=== PATIENT | female | born 1995 | race Two or more races ===

== ENCOUNTER 2020-09-27 20:17 | Emergency (ER) | payer OTHER ==
[2020-09-27 20:24] VITALS: TEMP 98.2; BMI 28.1
[2020-09-27] MEDS ORDERED: ACETAMINOPHEN 325 MG TABLET (FP) PO ONE (22:19)
[2020-09-27 22:47] VITALS: PULSE 94
[2020-09-27 22:52] LABS: BASO % 0.5 % (0-2.0); EOS % 0.6 % (0-4.5); HEMOGLOBIN 10.2 GM/dL (10.7-15.3); LYMPH % 19.9 % (8-40); MCH 35.8 pg (25.7-33.7); MCHC 34.1 g/dl (32.0-36.0); MEAN CELL VOLUME 104.9 fl (80-96); MONO % 5.5 % (3.8-10.2); NEUT % 73.5 % (42.8-82.8); PLATELET COUNT 250 K/MM3 (134-434); RBC 2.86 M/mm3 (3.60-5.2); RDW 13.2 % (11.6-15.6); WHITE BLOOD COUNT 8.6 K/mm3 (4.0-10.0)
[2020-09-27 22:54] LABS: EPI CELLS 10 /uL (0-25.1); HYALINE CASTS 2 /uL (0-3.1); PH,URINE 7.5 (5.0-8.0); URINE APPEARANCE CLEAR; URINE BACTERIA 385 /uL (0-1359); URINE BILIRUBIN NEGATIVE (NEGATIVE); URINE COLOR YELLOW; URINE GLUCOSE (UA) NEGATIVE (NEGATIVE); URINE KETONE NEGATIVE (NEGATIVE); URINE LEUK ESTERASE NEGATIVE (NEGATIVE); URINE NITRITE NEGATIVE (NEGATIVE); URINE PROTEIN 1+ (NEGATIVE); URINE RBC 18 /uL (0-23.9); URINE WBC 7 /uL (0-25.8)
[2020-09-27 22:57] LABS: INR 0.94 (0.83-1.09); PROTHROMBIN TIME (PATIENT) 11.6 SEC (9.7-13.0)
[2020-09-27 23:00] LABS: ACTIVATED PTT 29.8 SECONDS (25.2-36.5)
[2020-09-27 23:01] VITALS: BP 112/78
[2020-09-27 23:23] LABS: POTASSIUM 4.3 mmol/L (3.5-5.1)
[2020-09-27 23:32] LABS: CALCIUM 8.7 mg/dL (8.5-10.1)
[2020-09-27 23:33] LABS: ALBUMIN 3.5 g/dl (3.4-5.0)
[2020-09-27 23:36] LABS: CREATININE 0.5 mg/dL (0.55-1.3)
[2020-09-27 23:37] LABS: TOT PROT 6.9 g/dl (6.4-8.2)
== END 2020-09-27 23:03 | disposition short-term general hospital (02) ==
LOC: JER 20:17
DX: O71.9 Obstetric trauma, unspecified (principal)
CPT/HCPCS: 36415; 76604; 76705-TC; 76815; 80053; 81003; 84702; 85025; 85610; 85730; 86850; 86900; 86901; 93308; 99285-25

== ENCOUNTER 2021-03-06 11:56 | Inpatient (IN) | payer OTHER ==
[2021-03-06] MEDS ORDERED: AMPICILLIN SODIUM 2 GM VIAL ONE (12:43)
[2021-03-06] MEDS ORDERED: AMPICILLIN - 2 GM in SODIUM CHLORIDE 100 ML IVPB ONE (13:00)
[2021-03-06] MEDS ORDERED: ELECTROLYTE-148 SOLN 1,000 ML IV SCH (13:00)
[2021-03-06 13:30] LABS: BASO % 0.4 % (0-2.0); EOS % 0.4 % (0-4.5); HEMATOCRIT 33.4 % (32.4-45.2); HEMOGLOBIN 11.7 GM/dL (10.7-15.3); LYMPH % 14.8 % (8-40); MCH 35.9 pg (25.7-33.7); MCHC 34.8 g/dl (32.0-36.0); MEAN PLT VOLUME 10.2 fl (7.5-11.1); MONO % 4.9 % (3.8-10.2); NEUT % 79.5 % (42.8-82.8); PLATELET COUNT 177 10^3/uL (134-434); RBC 3.25 M/mm3 (3.60-5.2); RDW 12.3 % (11.6-15.6); WHITE BLOOD COUNT 7.8 K/mm3 (4.0-10.0)
[2021-03-06 13:41] LABS: INR 0.94 (0.83-1.09); PROTHROMBIN TIME (PATIENT) 11.4 SEC (9.7-13.0)
[2021-03-06 13:44] LABS: ACTIVATED PTT 29.3 SECONDS (25.2-36.5)
[2021-03-06 13:46] VITALS: BMI 37.9
[2021-03-06 13:57] LABS: BLOOD UREA NITROGEN 8.1 mg/dL (7-18); CALCIUM 8.6 mg/dL (8.5-10.1)
[2021-03-06 14:01] LABS: CREATININE 0.6 mg/dL (0.55-1.3)
[2021-03-06] MEDS ORDERED: FENTANYL/BUPIVACAINE/NS/PF - PCEA - 50 ML DISP.SYRIN EP ONE ×3 (14:06→18:49)
[2021-03-06] MEDS ORDERED: PCA PUMP NR ONE (14:07)
[2021-03-06] MEDS ORDERED: OXYTOCIN 30 UNITS in 0.9% NS 30 UNIT/500 ML INFUS.BAG IVPB ONE (14:08)
[2021-03-06] MEDS ORDERED: OXYTOCIN 30 UNITS in 0.9% NS 30 UNIT/500 ML INFUS.BAG IVPB SCH (14:15)
[2021-03-06] MEDS ORDERED: LIDOCAINE HCL 1% PRESERVATIVE FREE - 30ML VIAL ONE ×2 (14:24→19:09)
[2021-03-06] MEDS ORDERED: BUPIVACAINE HCL/PF 0.25% (2.5MG/ML) 10 ML VIAL ONE (14:24)
[2021-03-06] MEDS: FENTANYL/BUPIVACAINE/NS/PF - PCEA - 50 ML DISP.SYRIN EP SCH ×2 (14:45→18:50)
[2021-03-06 14:52] LABS: HIV INTERPRETATION NEGATIVE (NEGATIVE)
[2021-03-06] MEDS ORDERED: NALOXONE HCL 0.4 MG/ML VIAL IVPUSH PRN (14:57)
[2021-03-06] MEDS ORDERED: AMPICILLIN SODIUM 1 GM VIAL ONE ×2 (16:51→20:40)
[2021-03-06] MEDS: AMPICILLIN - 1 GM in DEXTROSE 5%-WATER 100 ML IVPB SCH ×3 (17:03→21:40)
[2021-03-06 18:58] LABS: COCAINE, UR NEGATIVE (NEGATIVE); METHADONE, UR NEGATIVE (NEGATIVE); OPIATES, URI NEGATIVE (NEGATIVE); URINE BARBITURATES NEGATIVE (NEGATIVE); URINE BENZODIAZEPINES NEGATIVE (NEGATIVE)
[2021-03-06 18:59] LABS: PHENCYCLIDINE,URINE NEGATIVE (NEGATIVE)
[2021-03-06 19:06] LABS: URINE AMPHETAMINES NEGATIVE (NEGATIVE)
[2021-03-06] MEDS ORDERED: OXYTOCIN 20 UNITS in 0.9% NS 20 UNIT/1,000 ML INFUS.BAG IV ONE (19:09)
[2021-03-06 21:58] LABS: CORD BASE EXCESS -4.7 mmol/L (0-2); CORD HCO3 21.7 mmHg (20-29); CORD pH 7.301 (7.14-7.44)
[2021-03-06 21:59] LABS: CORD BASE EXCESS -6.1 mmol/L (0-2); CORD HCO3 23.7 mmHg (20-29); CORD PCO2 66.2 mmHg (30-78); CORD pH 7.171 (7.14-7.44)
[2021-03-06] MEDS ORDERED: BENZOCAINE 20% 57 GM BOTTLE TP PRN (22:30)
[2021-03-06] MEDS ORDERED: OXYTOCIN 20 UNITS in 0.9% NS 20 UNIT/1,000 ML INFUS.BAG IV SCH (22:30)
[2021-03-06] MEDS ORDERED: BENZOCAINE 28 GM HEMORRHOIDAL OINTMENT TP PRN (22:30)
[2021-03-06] MEDS ORDERED: WITCH HAZEL 50% (TUCKS) 40 PAD/JAR PAD TP PRN (22:30)
[2021-03-06] MEDS ORDERED: ACETAMINOPHEN 325 MG TABLET (FP) PO PRN (22:30)
[2021-03-06] MEDS ORDERED: METHYLERGONOVINE MALEATE 0.2 MG/1 ML AMP IM PRN (22:30)
[2021-03-06] MEDS ORDERED: BISACODYL 10 MG SUPP.RECT RC PRN (22:30)
[2021-03-07] MEDS: IBUPROFEN 600 MG TABLET (FP) PO PRN ×2 (04:10→23:27)
[2021-03-07] MEDS: FERROUS SO4 325 MG TABLET (FP) PO SCH ×2 (08:20→18:33)
[2021-03-07 08:54] LABS: BASO % 0.4 % (0-2.0); EOS % 0.7 % (0-4.5); HEMATOCRIT 30.6 % (32.4-45.2); HEMOGLOBIN 10.6 GM/dL (10.7-15.3); LYMPH % 13.7 % (8-40); MCH 35.9 pg (25.7-33.7); MCHC 34.7 g/dl (32.0-36.0); MEAN CELL VOLUME 103.5 fl (80-96); MEAN PLT VOLUME 9.9 fl (7.5-11.1); MONO % 6.5 % (3.8-10.2); NEUT % 78.7 % (42.8-82.8); PLATELET COUNT 147 10^3/uL (134-434); RBC 2.95 M/mm3 (3.60-5.2); RDW 12.1 % (11.6-15.6); WHITE BLOOD COUNT 13.7 K/mm3 (4.0-10.0)
[2021-03-07] MEDS: PRENATAL VITAMINS W/ FOLIC ACID TABLET (FP) PO SCH (09:34)
[2021-03-07] MEDS ORDERED: SENNOSIDES/DOCUSATE COMBO (SENNA PLUS) TABLET (UD) PO PRN (22:00)
[2021-03-08] MEDS: IBUPROFEN 600 MG TABLET (FP) PO PRN (05:39)
[2021-03-08] MEDS: PRENATAL VITAMINS W/ FOLIC ACID TABLET (FP) PO SCH (10:01)
[2021-03-08] MEDS: FERROUS SO4 325 MG TABLET (FP) PO SCH ×2 (10:03→17:35)
[2021-03-08 14:12] VITALS: BP 127/74; PULSE 73; TEMP 97.9
== END 2021-03-08 18:00 | disposition home or self-care (01) | DRG 560 ==
LOC: NEWFOCUS 11:56 → JLDR 12:35 → J3W 23:36
PROVIDERS: ADMIT Obstetrics & Gynecology; ATTEND Obstetrics & Gynecology
PROC: 10E0XZZ Delivery of Products of Conception, External Approach (ICD-10-PCS; principal; 2021-03-06)
DX: O48.0 Post-term pregnancy (principal); O40.3XX0 Polyhydramnios, third trimester, not applicable or unspecified; O99.214 Obesity complicating childbirth; E66.9 Obesity, unspecified; O99.824 Streptococcus B carrier state complicating childbirth; Z3A.40 40 weeks gestation of pregnancy; Z37.0 Single live birth
CPT/HCPCS: 36415; 36600; 59409; 80048; 80307; 82803; 85025; 85610; 85730; 86780; 86850; 86900; 86901; 87389; C9803; U0003; U0005